=== PATIENT | female | born 1975 | race Caucasian/White ===

== ENCOUNTER → 2019-03-06 | Outpatient (CLI) | payer BC ==
--- NOTE | 2019-03-09 10:20 | Diagnostic Imaging Report ---
INDICATION: Routine screening. COMPARISON: No prior mammograms are available for comparison. This a baseline study. TECHNIQUE: 2D and 3D bilateral screening mammography was performed with CAD. FINDINGS: Both breasts are heterogeneously dense, limiting the sensitivity of mammography. No mass or malignant appearing microcalcifications are seen. The axillae are unremarkable. IMPRESSION: No mammographic features suspicious for malignancy are identified. ACR BI-RADS Category 1: Negative. Result letter will be mailed to the patient. Note: At least 10% of breast cancer is not imaged by mammography. Dictated by: Dictated on workstation # [id number]
== END ==
LOC: RAD 14:28
PROVIDERS: ATTEND Nurse Practitioner
DX: Z01.419 Encounter for gynecological examination (general) (routine) without abnormal findings (principal); Z12.31 Encounter for screening mammogram for malignant neoplasm of breast
CPT/HCPCS: 77067

== ENCOUNTER → 2020-03-07 | Outpatient (CLI) | payer BC ==
--- NOTE | 2020-03-07 11:50 | Diagnostic Imaging Report ---
INDICATION: Routine screening. COMPARISON: 03/06/2019. TECHNIQUE: 2D and 3D bilateral screening mammography was performed with CAD. FINDINGS: Both breasts remain heterogeneously dense, limiting the sensitivity of mammography. The parenchymal pattern appears to be stable. No mass or malignant appearing microcalcifications are identified. The axillae are unremarkable. IMPRESSION: No mammographic features suspicious for malignancy are identified. ACR BI-RADS Category 1: Negative. Result letter will be mailed to the patient. Note: At least 10% of breast cancer is not imaged by mammography. Dictated by: Dictated on workstation # [id number]
== END ==
LOC: RAD 09:57
PROVIDERS: ATTEND Surgery
DX: Z12.31 Encounter for screening mammogram for malignant neoplasm of breast (principal); N93.8 Other specified abnormal uterine and vaginal bleeding
CPT/HCPCS: 77063; 77067

== ENCOUNTER → 2020-06-02 | Outpatient (CLI) | payer OTHER ==
--- NOTE | 2020-06-02 13:06 | Diagnostic Imaging Report ---
INDICATION: Neck pain. TIME OF EXAM: 10:07 AM. TECHNIQUE: Multiple views of the cervical spine were obtained. FINDINGS: The curvature and alignment are normal. There is degenerative disc disease at the C6-C7 level with disc space narrowing and marginal spurring. The neuroforamina appear patent. The odontoid is intact. No fractures are seen. The prevertebral tissues are within normal limits. IMPRESSION: C6-C7 degenerative disc disease. No other significant abnormality is detected. Dictated by: Dictated on workstation # [id number]
== END ==
LOC: RAD FS 09:44
PROVIDERS: ATTEND Nurse Practitioner
DX: M50.123 Cervical disc disorder at C6-C7 level with radiculopathy (principal)
CPT/HCPCS: 72050

== ENCOUNTER → 2020-06-17 | Outpatient (CLI) | payer OTHER ==
--- NOTE | 2020-06-17 16:24 | Diagnostic Imaging Report ---
PROCEDURE: MR imaging cervical spine without contrast. TECHNIQUE: Multiplanar, multisequence MR imaging of the cervical spine was performed without contrast. INDICATION: Cervical radiculopathy. COMPARISON: Cervical spine radiographs 06/02/2020. FINDINGS: Normal alignment. Vertebral body heights preserved. Modic type II degenerative endplate changes at C6-C7. No abnormal signal in the cervical spinal cord. The visualized paravertebral soft tissues are unremarkable. Small annular disc bulge at C6-C7 results in mild spinal canal narrowing. There is moderate neural foraminal narrowing on the left at this level. No other substantial spinal canal or narrowing in the cervical spine. There is mild neural foraminal narrowing on the right at C3-C4, bilaterally at C5-C6. IMPRESSION: 1. Spondylotic changes in the cervical spine are focal to the C6-C7 level where there is mild spinal canal and moderate left neural foraminal narrowing. 2. No other spinal canal or substantial neural foraminal narrowing. 3. No abnormal signal in the cervical spinal cord. Dictated by: Dictated on workstation # [id number]
== END ==
LOC: RAD 15:10
PROVIDERS: ATTEND Nurse Practitioner
DX: M47.22 Other spondylosis with radiculopathy, cervical region (principal); M48.02 Spinal stenosis, cervical region
CPT/HCPCS: 72141